=== PATIENT | female | born 1990 | race Two or more races ===

== ENCOUNTER 2024-08-22 17:30 | Emergency (ER) | payer OTHER ==
[~2024-08-22] VITALS: Ht 167.6 cm; Wt 71.2 kg
[2024-08-22] MEDS ORDERED: ADDERALL 15 MG15 MG (18:15)
[2024-08-22] MEDS ORDERED: MEDROLPACK PO (20:36)
[2024-08-22] MEDS ORDERED: CEFADROXIL500 MG PO (20:36)
[2024-08-22] MEDS ORDERED: XYZAL5 MG PO (20:36)
[2024-08-22] MEDS ORDERED: METHYLPREDNISOLONE SOD SUCC 40 MG VIAL IM STA (20:44)
[2024-08-22] MEDS ORDERED: METHYLPREDNISOLONE SOD SUCC 40 MG VIAL ONE (20:48)
== END 2024-08-22 22:06 | disposition home or self-care (01) ==
LOC: ER 17:33
DX: L23.9 Allergic contact dermatitis, unspecified cause (principal); N61.0 Mastitis without abscess

== ENCOUNTER 2025-05-25 01:26 | Inpatient (IN) | payer OTHER ==
[~2025-05-25] VITALS: Ht 167.6 cm; Wt 72.6 kg
[~2025-05-25 01:26] MED LIST: ADDERALL 15 MG15 MG; CEFADROXIL500 MG PO; MEDROLPACK PO; XYZAL5 MG PO
[2025-05-25] MEDS ORDERED: ADDERALL 15 MG15 MG PO (01:49)
--- NOTE | 2025-05-25 01:57 | NUR ---
PTE ALERTA Y ORIENTADA X3 REFIERE DOLOR INTENSO EN EL AREA DE LA ESPALDA. SE SIOMARA S/V Y SE UBICA.
[2025-05-25] MEDS ORDERED: ACETAMINOPHEN 500 MG GEL..CAP PO ONE ×2 (02:01→13:14)
[2025-05-25] MEDS ORDERED: PROMETHAZINE HCL 50 MG/ML AMPUL IM STA (02:45)
[2025-05-25] MEDS ORDERED: TAMSULOSIN HCL 0.4 MG CAP PO STA (02:45)
[2025-05-25] MEDS ORDERED: SODIUM CHLORIDE 0.45 % 1,000 ML IV ONE (02:45)
[2025-05-25] MEDS ORDERED: KETOROLAC TROMETHAMINE 30 MG VIAL IV STA ×2 (02:45→07:56)
[2025-05-25] MEDS ORDERED: CEFTRIAXONE SODIUM 1,000 MG VIAL IV STA (02:46)
[2025-05-25] MEDS ORDERED: TAMSULOSIN HCL 0.4 MG CAP PO ONE (03:00)
[2025-05-25] MEDS ORDERED: KETOROLAC TROMETHAMINE 30 MG VIAL ONE ×2 (03:00→08:15)
[2025-05-25] MEDS ORDERED: CEFTRIAXONE SODIUM 1,000 MG VIAL ONE ×2 (03:00→10:30)
[2025-05-25] MEDS ORDERED: PROMETHAZINE HCL 50 MG/ML AMPUL IM ONE (03:00)
--- NOTE | 2025-05-25 03:45 | NUR ---
SE ORIENTA PTE SOBRE TX, REFIERE ENTENDER Y ACEPTAR. SE JEANNETTE MUESTRAS DE LABORATORIO, SE CANALIZA Y SE ADMINISTRAN MEDICAMENTOS.
[2025-05-25 03:52] LABS: BASO % 0.3 % (0.1-1.2); EOS # 0.02 (0.04-0.54); EOS % 0.2 % (0.7-7.0); LYMPH # 0.44 (1.18-3.74); LYMPH % 3.7 % (19.3-53.1); MEAN PLATELET VOLUME 10.00 fl (9.4-12.4); MONO # 0.78 (0.24-0.82); MONO % 6.6 % (4.7-12.5); NEUT # 10.45 (1.56-6.13); NEUT % 88.9 % (34.0-71.1); RED CELL DISTRIBUTION WIDTH 10.9 % (11.6-14.4)
[2025-05-25 04:33] LABS: BUN CREA RATIO 22.0 (7.0-25.0); CREATININE SERUM 0.6 mg/dL (0.55-1.02); GFR 113.11; GLUCOSE FASTING 121.0 mg/dL (65-100); OSMOLALITY SERUM 275.0 MOSM/KG (275-295)
--- NOTE | 2025-05-25 08:24 | NUR ---
PACIENTE ALERTA Y ORIENTADA, SE LE ADMINISTRA MEDICAMENTO IV CON MEDIDAS ASEPTICAS PARA EL DOLOR. ESTA TOLERA EL MISMO Y NO PRESENTA REACCION , PERMANECE EN DESCANSO PARA RE-EVLUACION.
[2025-05-25 08:25] LABS: URINE APPEARANCE Cloudy; URINE BILIRRUBIN Negative (NEGATIVE); URINE BLOOD Moderate; URINE COLOR Yellow; URINE EPITHELIAL CELLS 39.6 uL (0.0-38.8); URINE GLUCOSE Negative (NEGATIVE); URINE KETONE Trace (NEGATIVE); URINE LEUKOCYTE Moderate; URINE NITRATE Positive; URINE PROTEIN 30 (NEGATIVE); URINE RBC 10.8 uL (0.0-20.8); URINE UROBILINOGEN 0.2 E.U./dl; URINE WBC 1492.2 uL (0.0-23.2)
[2025-05-25 09:03] LABS: URINE CAST 0.00 uL (0.0-1.40)
[2025-05-25] MEDS ORDERED: CEFTRIAXONE SODIUM 2,000 MG VIAL IV ONE (10:15)
[2025-05-25] MEDS ORDERED: CEFTRIAXONE SODIUM 1,000 MG VIAL IV ONE (10:45)
[2025-05-25] MEDS ORDERED: RINGERS SOLUTION,LACTATED 1,000 ML IV STA (11:19)
[2025-05-25] MEDS ORDERED: ONDANSETRON HCL 2 MG/ML VIAL IV STA (11:35)
[2025-05-25] MEDS ORDERED: PANTOPRAZOLE SODIUM 40 MG TABLET.DR PO SCH (11:35)
[2025-05-25] MEDS ORDERED: ONDANSETRON HCL 2 MG/ML VIAL IV PRN (11:45)
[2025-05-25] MEDS ORDERED: ACETAMINOPHEN 500 MG GEL..CAP PO PRN (13:30)
[2025-05-25] MEDS ORDERED: MEROPENEM 500 MG in 0.9 % SODIUM CHLORIDE 50 ML IV SCH (14:00)
[2025-05-25] MEDS ORDERED: MORPHINE SULFATE 4 MG/ML CARTRIDGE IV STA (14:24)
[2025-05-25 19:58] VITALS: BP 90/70
[2025-05-25] MEDS ORDERED: MORPHINE SULFATE 2 MG/ML SYRINGE IV PRN (20:30)
[2025-05-25] MEDS ORDERED: RINGERS SOLUTION,LACTATED 1,000 ML IV SCH (23:00)
[2025-05-26 03:01] VITALS: BP 89/65; O2SAT 95
[2025-05-26 06:02] LABS: BASO % 0.2 % (0.1-1.2); EOS # 0.03 (0.04-0.54); EOS % 0.3 % (0.7-7.0); LYMPH # 1.02 (1.18-3.74); LYMPH % 10.5 % (19.3-53.1); MEAN PLATELET VOLUME 10.50 fl (9.4-12.4); MONO # 0.98 (0.24-0.82); MONO % 10.0 % (4.7-12.5); NEUT # 7.69 (1.56-6.13); NEUT % 78.8 % (34.0-71.1); RED CELL DISTRIBUTION WIDTH 11.3 % (11.6-14.4)
[2025-05-26 06:37] LABS: BAND MAN 3.0 %; LYMPHOCYTE MAN 12.0 %; MONOCYTE MAN 6.0 %; NEUTROPHILS MAN 77.0 %
[2025-05-26 06:43] LABS: ALT/SGPT 30.0 U/L (12-78); AST/SGOT 27.0 U/L (15-37); BILIRUBIN TOTAL 0.3 mg/dL (0.3-1.2); BUN CREA RATIO 11.0 (7.0-25.0); CREATININE SERUM 0.74 mg/dL (0.55-1.02); GFR 88.8; GLOBULINA 3.1 G/DL (2.4-3.5); GLUCOSE FASTING 118.0 mg/dL (65-100); OSMOLALITY SERUM 279.0 MOSM/KG (275-295)
[2025-05-26 08:34] VITALS: BP 95/60; O2SAT 97
[2025-05-26] MEDS ORDERED: MAGNESIUM SULFATE IN WATER 50 ML IV NR (13:00)
[2025-05-26] MEDS ORDERED: SODIUM CHLORIDE 0.45 % 1,000 ML IV STA (13:17)
[2025-05-26] MEDS ORDERED: KETOROLAC TROMETHAMINE 30 MG VIAL IV PRN (13:30)
[2025-05-26] MEDS ORDERED: POTASSIUM PHOS,M-BASIC-D-BASIC 9 MM in 0.9 % SODIUM CHLORIDE 250 ML IV ONE (16:00)
[2025-05-26 20:44] VITALS: BP 101/69; O2SAT 100
[2025-05-27 03:44] VITALS: BP 91/62; O2SAT 96
[2025-05-27 06:46] LABS: BASO % 0.3 % (0.1-1.2); EOS # 0.14 (0.04-0.54); EOS % 2.0 % (0.7-7.0); LYMPH # 1.54 (1.18-3.74); LYMPH % 21.5 % (19.3-53.1); MEAN PLATELET VOLUME 10.90 fl (9.4-12.4); MONO # 0.83 (0.24-0.82); MONO % 11.6 % (4.7-12.5); NEUT # 4.60 (1.56-6.13); NEUT % 64.3 % (34.0-71.1); RED CELL DISTRIBUTION WIDTH 11.7 % (11.6-14.4)
[2025-05-27 09:31] VITALS: BP 98/63; O2SAT 97
[2025-05-27 09:52] LABS: ALT/SGPT 36.0 U/L (12-78); AST/SGOT 24.0 U/L (15-37); BILIRUBIN TOTAL 0.19 mg/dL (0.3-1.2); BUN CREA RATIO 17.0 (7.0-25.0); CREATININE SERUM 0.63 mg/dL (0.55-1.02); GFR 106.92; GLOBULINA 3.2 G/DL (2.4-3.5); GLUCOSE FASTING 106.0 mg/dL (65-100); OSMOLALITY SERUM 283.0 MOSM/KG (275-295)
[2025-05-27 20:33] VITALS: BP 112/80
[2025-05-28 02:21] VITALS: BP 100/69; O2SAT 95
[2025-05-28 09:35] VITALS: BP 113/78; O2SAT 96
[2025-05-28] MEDS ORDERED: LEVOFLOXACIN750 MG PO (10:37)
[2025-05-28] MEDS ORDERED: INTESTINEX680 M1 PO (10:37)
== END 2025-05-28 11:38 | disposition home or self-care (01) | DRG 872 ==
LOC: ER 01:27 → MEDJ 12:25 → SEC-K 12:25 → MEDJ 13:00
PROVIDERS: General Practice; ADMIT Internal Medicine; ATTEND Internal Medicine
PROC: BW21ZZZ Computerized Tomography (CT Scan) of Abdomen and Pelvis (ICD-10-PCS; principal; 2025-05-25)
DX: A41.9 Sepsis, unspecified organism (principal); N12 Tubulo-interstitial nephritis, not specified as acute or chronic; N39.0 Urinary tract infection, site not specified